=== PATIENT | female | born 1950 | race Caucasian/White ===

== ENCOUNTER 2023-08-28 17:01 | Inpatient (IN) | payer BC ==
[~2023-08-28] VITALS: Ht 160 cm; Wt 52.2 kg
[2023-08-28 18:04] LABS: BASOPHILS # (AUTO) 0.1 K/uL (0.0-0.2); BASOPHILS % (AUTO) 1.9 % (0.0-2.0); EOSINOPHILS # (AUTO) 0.2 K/uL (0.0-0.7); EOSINOPHILS % (AUTO) 3.1 % (0.0-6.0); HEMATOCRIT 41 % (33-45); HEMOGLOBIN 13.6 g/dL (11.5-14.8); LYMPHOCYTES # (AUTO) 2.1 K/uL (0.8-4.8); LYMPHOCYTES % (AUTO) 31.1 % (20.0-44.0); MEAN CORPUSCULAR HEMOGLOBIN 31 PG (26.0-33.0); MEAN CORPUSCULAR HGB CONC 34 g/dl (31.0-36.0); MEAN CORPUSCULAR VOLUME 92 fL (82-100); MONOCYTES # (AUTO) 0.6 K/uL (0.1-1.30); MONOCYTES % (AUTO) 8.6 % (2.0-12.0); NEUTROPHILS # (AUTO) 3.7 K/uL (1.8-8.9); NEUTROPHILS % (AUTO) 55.3 % (43.0-81.0); PLATELET COUNT (AUTO) 253 K/uL (150-450); RED BLOOD CELL COUNT(AUTO) 4.42 MIL/uL (4.0-5.2); RED CELL DISTRIBUTION WIDTH 13.4 % (11.5-15.0); WHITE BLOOD COUNT (AUTO) 6.8 K/uL (4.3-11.0)
[2023-08-28 18:11] LABS: CALCIUM, SERUM 8.8 mg/dL (8.5-10.1); CARBON DIOXIDE 30 mmol/L (21-32); CHLORIDE 103 mmol/L (98-107); CREATININE 0.7 mg/dL (0.6-1.3); GLUCOSE 98 mg/dL (74-106); SODIUM SERUM 138 mmol/L (136-145); UREA NITROGEN, BLOOD 11 mg/dL (7-18)
[2023-08-28 18:23] LABS: NT-PRO BNP 188 pg/mL (0-125)
[2023-08-28] MEDS ORDERED: IOHEXOL-350 100 ML VIAL IV ONE (18:41)
[2023-08-28] MEDS ORDERED: IV NS 0.9% 250 ML IV ONE (18:41)
[2023-08-28 18:47] LABS: MAGNESIUM 2.2 mg/dL (1.8-2.4)
[2023-08-28 19:07] LABS: THYROID STIMULATING HORMONE 10.932 uIU/mL (0.358-3.74)
[2023-08-28] MEDS ORDERED: ASPIRIN 325 MG TABLET ONE (23:07)
[2023-08-28] MEDS: ASPIRIN 325 MG TABLET PO ONE (23:11)
[2023-08-29] MEDS ORDERED: ONDANSETRON HCL/PF 4 MG/2 ML VIAL IVP PRN (06:00)
[2023-08-29] MEDS ORDERED: Z GUARD REMEDY 4 OZ OINT TP PRN (06:00)
[2023-08-29] MEDS ORDERED: ACETAMINOPHEN 325 MG TABLET PO PRN (06:00)
[2023-08-29 07:14] LABS: BASOPHILS # (AUTO) 0.1 K/uL (0.0-0.2); BASOPHILS % (AUTO) 0.7 % (0.0-2.0); EOSINOPHILS # (AUTO) 0.3 K/uL (0.0-0.7); HEMATOCRIT 40 % (33-45); HEMOGLOBIN 13.4 g/dL (11.5-14.8); LYMPHOCYTES # (AUTO) 3.1 K/uL (0.8-4.8); LYMPHOCYTES % (AUTO) 42.4 % (20.0-44.0); MEAN CORPUSCULAR HEMOGLOBIN 32 PG (26.0-33.0); MEAN CORPUSCULAR HGB CONC 34 g/dl (31.0-36.0); MEAN CORPUSCULAR VOLUME 94 fL (82-100); MONOCYTES # (AUTO) 0.7 K/uL (0.1-1.30); MONOCYTES % (AUTO) 9.7 % (2.0-12.0); NEUTROPHILS # (AUTO) 3.2 K/uL (1.8-8.9); NEUTROPHILS % (AUTO) 43.2 % (43.0-81.0); PLATELET COUNT (AUTO) 249 K/uL (150-450); RED BLOOD CELL COUNT(AUTO) 4.25 MIL/uL (4.0-5.2); RED CELL DISTRIBUTION WIDTH 13.5 % (11.5-15.0); WHITE BLOOD COUNT (AUTO) 7.4 K/uL (4.3-11.0)
[2023-08-29 07:32] LABS: CALCIUM, SERUM 8.4 mg/dL (8.5-10.1); CARBON DIOXIDE 30 mmol/L (21-32); CHLORIDE 105 mmol/L (98-107); CREATININE 0.9 mg/dL (0.6-1.3); GLUCOSE 79 mg/dL (74-106); MAGNESIUM 2.2 mg/dL (1.8-2.4); PHOSPHORUS 4.4 mg/dL (2.5-4.9); SODIUM SERUM 140 mmol/L (136-145); UREA NITROGEN, BLOOD 12 mg/dL (7-18)
[2023-08-29 07:46] LABS: CHOLESTEROL 153 mg/dL (<200); HDL CHOLESTEROL 76 mg/dL (40-60); LDL 66 mg/dL (0-99); THYROID STIMULATING HORMONE 18.388 uIU/mL (0.358-3.74); TRIGLYCERIDES 50 mg/dL (30-150)
[2023-08-29 08:00] VITALS: BP 127/63; TEMP 97.9; O2SAT 99
[2023-08-29] MEDS ORDERED: SIMV-46 PO (08:20)
[2023-08-29] MEDS ORDERED: LEVO75TA7 PO (08:20)
[2023-08-29 12:00] VITALS: BP 111/52; TEMP 98.1; O2SAT 97
[2023-08-29] MEDS: PANTOPRAZOLE 40 MG TABLET.DR PO SCH (12:19)
[2023-08-29] MEDS: ASPIRIN EC 81 MG TABLET.DR PO SCH (12:20)
[2023-08-29] MEDS: ENOXAPARIN SODIUM 40 MG/0.4 ML DISP.SYRIN SQ SCH (12:21)
[2023-08-29] MEDS ORDERED: IOHEXOL-350 100 ML VIAL IV ONE (15:59)
[2023-08-29 16:00] VITALS: BP 125/71; TEMP 98.2; O2SAT 100
[2023-08-29] MEDS ORDERED: IV NS 0.9% 250 ML IV ONE (16:00)
[2023-08-29] MEDS ORDERED: METOPROLOL TARTRATE INJ 5 MG/5 ML AMPUL ONE (16:00)
[2023-08-29] MEDS ORDERED: CT SWABBABLE VALVE TRANS SET 1 EA INFUS.SET MC ONE (16:00)
[2023-08-29] MEDS ORDERED: NITROGLYCERIN 0.4 MG/TAB BOTTLE ONE (16:00)
[2023-08-29] MEDS: NITROGLYCERIN 0.4 MG/TAB BOTTLE SL ONE (16:09)
[2023-08-29] MEDS: METOPROLOL TARTRATE INJ 5 MG/5 ML AMPUL IVP PRN (16:13)
[2023-08-29] MEDS ORDERED: IOHEXOL 240MG/ML 0 ML IV ONE (16:15)
[2023-08-29] MEDS ORDERED: IOHEXOL 50 ML IV ONE (16:18)
[2023-08-29 20:00] VITALS: BP 121/67; TEMP 97.6; O2SAT 99
[2023-08-30] VITALS: BP 132/83; TEMP 96.7; O2SAT 96
[2023-08-30 04:00] VITALS: BP 124/67; O2SAT 98
[2023-08-30 06:52] LABS: BASOPHILS # (AUTO) 0.1 K/uL (0.0-0.2); BASOPHILS % (AUTO) 0.9 % (0.0-2.0); EOSINOPHILS # (AUTO) 0.4 K/uL (0.0-0.7); EOSINOPHILS % (AUTO) 4.6 % (0.0-6.0); HEMATOCRIT 40 % (33-45); HEMOGLOBIN 13.6 g/dL (11.5-14.8); LYMPHOCYTES # (AUTO) 3.5 K/uL (0.8-4.8); LYMPHOCYTES % (AUTO) 42.2 % (20.0-44.0); MEAN CORPUSCULAR HEMOGLOBIN 31 PG (26.0-33.0); MEAN CORPUSCULAR HGB CONC 34 g/dl (31.0-36.0); MEAN CORPUSCULAR VOLUME 93 fL (82-100); MONOCYTES # (AUTO) 0.8 K/uL (0.1-1.30); MONOCYTES % (AUTO) 9.8 % (2.0-12.0); NEUTROPHILS # (AUTO) 3.5 K/uL (1.8-8.9); NEUTROPHILS % (AUTO) 42.5 % (43.0-81.0); PLATELET COUNT (AUTO) 246 K/uL (150-450); RED BLOOD CELL COUNT(AUTO) 4.35 MIL/uL (4.0-5.2); RED CELL DISTRIBUTION WIDTH 13.7 % (11.5-15.0); WHITE BLOOD COUNT (AUTO) 8.3 K/uL (4.3-11.0)
[2023-08-30 07:29] LABS: ALBUMIN 3.2 g/dL (3.4-5.0); BILIRUBIN,TOTAL 0.5 mg/dL (0.2-1.0); CALCIUM, SERUM 8.6 mg/dL (8.5-10.1); MAGNESIUM 2.3 mg/dL (1.8-2.4); PHOSPHORUS 4.9 mg/dL (2.5-4.9); POTASSIUM 4.2 mmol/L (3.5-5.1); TOTAL PROTEIN, SERUM 6.8 g/dL (6.4-8.2)
[2023-08-30 08:00] VITALS: BP 128/60; TEMP 97.5; O2SAT 98
[2023-08-30] MEDS: METOPROLOL SUCCINATE 50 MG TAB.SR.24H PO SCH (08:30)
[2023-08-30] MEDS: LEVOTHYROXINE SODIUM 50 MCG TABLET PO SCH (08:56)
[2023-08-30] MEDS: SIMVASTATIN 20 MG TABLET PO SCH (08:56)
[2023-08-30] MEDS ORDERED: ASPI-1420 PO (10:26)
[2023-08-30] MEDS ORDERED: PREG50CA PO (10:26)
[2023-08-30] MEDS ORDERED: LEVO50TA8 PO (10:26)
[2023-08-30] MEDS: hydrOXYzine PAMOATE 25 MG CAPSULE PO ONE (10:54)
[2023-08-30 12:00] VITALS: BP 128/65; TEMP 98.1; O2SAT 97
== END 2023-08-30 13:45 | disposition home or self-care (01) | DRG 552 ==
LOC: ER 17:30 → TRANSITION 08-29 05:33 → TELE1 08-29 07:36 → MEDSG1 08-30 10:31
PROVIDERS: ADMIT Nurse Practitioner Family; ATTEND Nurse Practitioner Family
DX: M54.32 Sciatica, left side (principal); F41.9 Anxiety disorder, unspecified; I25.10 Atherosclerotic heart disease of native coronary artery without angina pectoris; E03.9 Hypothyroidism, unspecified; E78.5 Hyperlipidemia, unspecified; M79.662 Pain in left lower leg; M48.061 Spinal stenosis, lumbar region without neurogenic claudication; R00.2 Palpitations
CPT/HCPCS: 36415; 71045-TC; 72131-TC; 75574; 78582; 80048-TC; 80053-TC; 80061-TC; 82306; 83735-TC; 83880; 84100-TC; 84439-TC; 84443-TC; 84484-TC; 85025-TC; 85378-TC; 93307-TC; 93970-TC; A9567; G0378; J1650; J3490; J7050; Q0177; Q9966; Q9967